=== PATIENT | male | born 1955 | race Caucasian/White ===

== ENCOUNTER 2023-05-30 08:17 | Outpatient (AMB) | payer OTHER, SELFPAY ==
[2023-05-30 08:37] VITALS: BP 140/72; PULSE 92; O2SAT 98; BMI 24.3
--- NOTE | 2023-05-30 08:37 | A.OFFPC_ITS ---
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 Required: No Allergies No Known Allergies Allergy (Verified 05/30/23 08:52) Medication List - Last Reconciled 05/30/23 by PRAVEEN Bernal aspirin 81 mg PO DAILY atorvastatin 80 mg PO BEDTIME Tobacco use date assessed: 05/30/23 Fall risk assessment: No Falls in past year Last assessed Fall Risk: 05/30/23 Dental Screening Dental Screen Date: 05/30/23 Did you have a dental visit in the last 12 months?: No Did you have a dental problem in the last 6 months where you did not have access to dental care?: No HPI HPI Comments History of Present Illness Details 68-year-old male new patient presents to day to establish care. Past medical history significant for stroke 4 weeks ago at [facility], night before had numbness in right leg resolved and then went to work the next day and felt off at work and went ER found out had stroke. Patient states some trouble with memory and residual numbness in right arm and right leg. Ambulatory. Patient's son reports his dad was recommended to be discharged with [facility] however they could not set up with [facility] at the time as he was not established with pcp, will send referral. Patient currently has Holter monitor on since he was discharged from the hospital 1 month ago, patient reports he is unsure how long he is supposed to have Holter monitor on for. Patient advised to call [facility] to follow-up on Holter monitor and when it shoul be removed. Unfortunately records unavailable during this appointment, will request records and have patient follow up for formal hospital discharge follow-up in 4 weeks. Blood pressure elevated in office today 140/72; patient reports he is nervous about being at the doctor's. Discussed following a low-salt diet and will con tinue to monitor his blood pressure. Smokes: 1/2 a pack a day, strongly advised to stop Unknown last PCP. [facility] Medical History (Updated 05/30/23 @ 09:11 by PRAVEEN Bernal) Stroke Family History (Updated 05/30/23 @ 08:55 by PRAVEEN Bernal) Mother No problems noted. Father No problems noted. Social History (Updated 05/30/23 @ 08:59 by PRAVEEN Bernal) Housing: Apartment Alcohol intake: never Patient Tobacco Use Status: Current someday Tobacco user Tobacco use type: Cigarette Cigarette Packs Per Day: 1 service: No Current occupational status: unemployed Cognitive needs: No Hearing needs: No Vision needs: No Questionnaire PHQ-9 Over the last 2 weeks, how often have you been bothered by any of the following problems? 1. Little interest or pleasure in doing things: not at all 2. Feeling down, depressed, or hopeless: not at all 3. Trouble falling or staying asleep, or sleeping too much: not at all 4. Feeling tired or having little energy: not at all 5. Poor appetite or overeating: not at all 6. Feeling bad about yourself - or that you are a failure or have let yourself or your family down: not at all 7. Trouble concentrating on things, such as reading the newspaper or watching television: not at all 8. Moving or speaking so slowly that other people could have noticed. Or the opposite - being so fidgety or restless that you have been moving around a lot more than usual: not at all 9. Thoughts that you would be better off or of hurting yourself in some way: not at all Total score: 0 Depression Screening Interpretation: Negative 95338 - PHQ-9 Billing: Yes Source: Developed by Drs. Jl Barbour, Airam Monson, Tyson Campbell and colleagues, with an educational jose francisco from [employer]. Thrive Questionnaire Date Thrive assessed: 05/30/23 I am a: Patient What is your living situation today?: I have a steady place to live Within the past 12 months, did the food you bought not last and you didn't have the money to get more?: Never true Within the past 12 months, did you worry whether your food would run out before you got money to buy more?: Never true Do you have trouble paying for medicines?: No Do you have trouble getting transportation to medical appointments?: No Do you have trouble paying your heating and electricity bill?: No Do you have trouble taking care of your child, family member or friend?: No Do you have trouble with day-to-day activities such as bathing, preparing meals, shopping, managing finances, etc.?: No Are you currently unemployed and looking for a job?: No Are you interested in more education?: No AUDIT C Alcohol Use Questionnaire (AUDIT-C) 1. How often do you have a drink containing alcohol?: Never 3. How often do you have six or more drinks on one occasion?: Never Total Score: 0 KARAN-7 AMB Questionnaire KARAN-7 Date KARAN - 7 assessed: 05/30/23 Feeling nervous, anxious, or on edge: 0 = Not at all Not being able to stop or control worryin = Not at all Worrying too much about different things: 0 = Not at all Trouble relaxin = Not at all Being so restless that it is hard to sit still: 0 = Not at all Becoming easily annoyed or irritable: 0 = Not at all Feeling afraid as if something awful might happen: 0 = Not at all Total KARAN-7 score (0-4 normal; 5-9 mild; 10-14 moderate; 15-21 severe): 0 Source: Developed by Drs. Jl Barbour, Airam Monson, Tyson Campbell and colleagues, with an educational jose francisco from [employer]. KARAN-7 Assessment Billing KARAN-7 Assessment Tool: KARAN-7 Assessment 49332 Review of Systems Const Denies chills, Denies fatigue, Denies fever(s) and Denies poor appetite Eyes Denies no additional complaints ENT Reports Normal hearing present Card Denies chest pain, Denies syncope, Denies rapid heart rate and Denies dyspnea Resp Denies cough and Denies dyspnea GI Denies change in stool character, Denies constipation, Denies diarrhea, Denies nausea and Denies vomiting Denies dysuria, Denies urinary frequency and Denies urinary urgency Musc Reports numbness (Residual numbness right arm and right leg) Neuro Reports Normal hearing present, Denies confusion, Denies syncope and Reports numbness (Residual numbness right arm and right leg) Psych Denies confusion Endo Denies fatigue Physical exam (Primary Care) Vital Signs: Last Vital Signs Pulse 92 05/30/23 08:37 BP 140/72 H 05/30/23 08:37 Pulse Ox 98 05/30/23 08:37 Oxygen Delivery Method Room Air 05/30/23 08:37 BMI result Body Mass Index 24.3 Tobacco/Smoking Status: Tobacco use Status Tobacco use date assessed 05/30/23 05/30/23 08:45 Patient Tobacco Use Status Current someday Tobacco 05/30/23 08:59 Tobacco use type Cigarette 05/30/23 08:59 PHQ-9: PHQ-9 Score PHQ-9: Total score 0 05/30/23 09:01 Depression Screening Interpretation: Negative Thrive Assessment: Date of Thrive Assessment Date Thrive assessed 05/30/23 05/30/23 08:45 Const General: No confusion Orientation/consciousness: No confusion HENMT Head: Yes normocephalic and Yes atraumatic Eyes Conjunctivae: conjunctivae normal Chest Chest palpation & inspection: normal inspection of the chest Resp Effort & Inspection: normal respiratory effort Auscultation: clear to auscultation bilaterally, no crackles, no rhonchi and no wheezes Cardio Rate: regular rate Rhythm: regular rhythm Heart sounds: S1 normal heart sound present and S2 normal heart sound present GI Inspection: Yes normal to inspection Neuro General: No confusion Cranial nerves: Yes Normal hearing present Extrem General: No edema Assessment and Plan Assessment & Plan (1) Stroke: Comment: Apr 26 2023 Code(s): I63.9 - Cerebral infarction, unspecified Plan: Continue on 81 mg aspirin and atorvastatin 80 mg daily. Patient requesting that atorvastatin be sent in 40 mg tablets as it was cheaper through his insurance. Rx sent. Referral entered to Neurology. (2) Hypercholesteremia: Code(s): E78.00 - Pure hypercholesterolemia, unspecified Plan: Fasting lipid panel ordered. Continue on atorvastatin 40 mg daily. Plan Follow-up in 4 weeks for hospital discharge follow-up. Orders: Orders Complete Blood Count Auto Diff Today Z13.0 - Encounter for screening for diseases of the blood and blood-forming organs and certain disorders involving the immune mechanism Comprehensive [place]. Panel Fast Today I63.9 - Cerebral infarction, unspecified Lipid Panel Today E78.00 - Pure hypercholesterolemia, unspecified TSH reflex Free T4 Today Z13.29 - Encounter for screening for other suspected endocrine disorder Referrals [facility] Referral I63.9 - Cerebral infarction, unspecified Neurology Referral I63.9 - Cerebral infarction, unspecified Medications: New atorvastatin 80 mg (2 x 40 mg) PO BEDTIME 180 tabs 3RF E78.00 - Pure hypercholesterolemia, unspecified Coding Level of Care Code New Pt Level 3 (02228) Diagnoses Stroke I63.9 Hypercholesteremia E78.00 Additional Codes KARAN-7 Assessment Billing - KARAN-7 Assessment Tool: KARAN-7 Assessment 37538 ([id number])
== END 2023-05-30 09:12 | disposition home or self-care (01) ==
PROVIDERS: PCP Nurse Practitioner Family; Visit Provider Nurse Practitioner Family
DX: I69.351 Hemiplegia and hemiparesis following cerebral infarction affecting right dominant side (principal); E78.00 Pure hypercholesterolemia, unspecified
CPT/HCPCS: 99203

== ENCOUNTER 2023-06-28 09:16 | Outpatient (AMB) | payer OTHER, SELFPAY ==
--- NOTE | 2023-06-28 09:26 | A.OFFPC_ITS ---
Vital Signs 06/28/23 09:28 Height 5 ft 8 in Weight 162 lb 8 oz BMI 24.7 BP 138/86 Blood Pressure Location Lt brachial Position Sitting Pulse 80 Pulse Source Pulse Oximeter Pulse Oximetry (%) 97 Oxygen Delivery Method Room Air Intake Visit Reasons: HDF Stroke [facility] Intake Note: Patient is here for hospital discharge follow up. Patient was discharged from [facility] on 04/24/23. 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 Patient presents today for hospital discharge follow-up from [facility], unfortunately records have group been requested x2 and red records unavailable at this time. Patient reminded to get previously ordered blood work completed. Patient continues to have residual numbness down right arm and right foot no other deficits. Patient states he was seen by [facility] prior to discharge x2 and he was discharged from their services[facility] Medical History (Updated 05/30/23 @ 09:11 by PRAVEEN Bernal) Stroke Surgical History (Updated 06/28/23 @ 09:32 by GEORGIANA Mehta) History of tonsillectomy Family History Mother No problems noted. Father No problems noted. Social History Housing: Apartment Alcohol intake: never Patient Tobacco Use Status: Current someday Tobacco user Tobacco use type: Cigarette Cigarette Packs Per Day: 0.5 e-Cigarette/Vaping Use: Never Used Second Hand Smoke Exposure: Yes service: No Current occupational status: unemployed Cognitive needs: No Hearing needs: No Vision needs: No Questionnaire Thrive Questionnaire Date Thrive assessed: 05/30/23 KARAN-7 AMB Questionnaire KARAN-7 Date KARAN - 7 assessed: 05/30/23 Source: Developed by Drs. Jl LAiram Pat, Tyson Campbell and colleagues, with an educational jose francisco from [employer]. Review of Systems Const Denies chills, Denies fatigue, Denies fever(s) and Denies poor appetite Eyes Denies no additional complaints ENT Reports Normal hearing present Card Denies chest pain, Denies syncope, Denies rapid heart rate and Denies dyspnea Resp Denies cough and Denies dyspnea GI Denies change in stool character, Denies constipation, Denies diarrhea, Denies nausea and Denies vomiting Denies dysuria, Denies urinary frequency and Denies urinary urgency Neuro Reports Normal hearing present, Denies confusion and Denies syncope Psych Denies confusion Endo Denies fatigue Physical exam (Primary Care) Vital Signs: Last Vital Signs Pulse 80 06/28/23 09:28 BP 138/86 06/28/23 09:28 Pulse Ox 97 06/28/23 09:28 Oxygen Delivery Method Room Air 06/28/23 09:28 BMI result Body Mass Index 24.7 Tobacco/Smoking Status: Tobacco use Status Tobacco use date assessed 06/28/23 06/28/23 09:33 Patient Tobacco Use Status Current someday Tobacco 06/28/23 09:33 Tobacco use type Cigarette 06/28/23 09:33 e-Cigarette/Vaping Use Never Used 06/28/23 09:33 Thrive Assessment: Date of Thrive Assessment Date Thrive assessed 05/30/23 06/28/23 09:33 Const General: No confusion Orientation/consciousness: No confusion HENMT Head: Yes normocephalic and Yes atraumatic Eyes Conjunctivae: conjunctivae normal Chest Chest palpation & inspection: normal inspection of the chest Resp Effort & Inspection: normal respiratory effort Auscultation: clear to auscultation bilaterally, no crackles, no rhonchi and no wheezes Cardio Rate: regular rate Rhythm: regular rhythm Heart sounds: S1 normal heart sound present and S2 normal heart sound present GI Inspection: Yes normal to inspection Neuro General: No confusion Cranial nerves: Yes Normal hearing present Extrem General: No edema Assessment and Plan Assessment & Plan (1) Hypercholesteremia: Code(s): E78.00 - Pure hypercholesterolemia, unspecified Plan: Continue on atorvastatin 80 mg daily. Avoid fried foods, chicken skin, eggs, butter,margarine, pastries and?? red meat. (2) Stroke: Comment: Apr 26 2023 Code(s): I63.9 - Cerebral infarction, unspecified Plan: Patient has upcoming appointment in September to see Neurology. Continue on 81 mg aspirin. Records re-requested from [facility]. Plan Follow-up in 3 months for physical exam. Coding Level of Care Code Est Pt Level 3 (66766) Diagnoses Hypercholesteremia E78.00 Stroke I63.9
[2023-06-28 09:28] VITALS: BP 138/86; PULSE 80; O2SAT 97; BMI 24.7
== END 2023-06-28 09:58 | disposition home or self-care (01) ==
PROVIDERS: PCP Nurse Practitioner Family; Visit Provider Nurse Practitioner Family
DX: E78.00 Pure hypercholesterolemia, unspecified (principal); I69.951 Hemiplegia and hemiparesis following unspecified cerebrovascular disease affecting right dominant side
CPT/HCPCS: 99213

== ENCOUNTER 2023-09-19 14:42 | Outpatient (AMB) | payer OTHER, SELFPAY ==
--- NOTE | 2023-09-19 15:20 | MHC.OFFVIS ---
Intake Vital Signs 09/19/23 15:21 Height 5 ft 8 in Weight 165 lb BMI 25.1 BP 104/82 Blood Pressure Location Rt brachial Position Sitting Pulse 70 Pulse Source Pulse Oximeter Pulse Oximetry (%) 97 Oxygen Delivery Method Room Air Intake Visit Reasons: I-[employer] [employer] ERECTING: Cerebral infarction- not set up Intake Note: Patient presents for cerebral infarction. Numbness from knee to foot, and my right arm from top to bottom,I have a little twitch in my eye. Allergies No Known Allergies Allergy (Verified 09/19/23 15:25) Medication List - Last Reconciled 09/19/23 by PRAVEEN Cardoza aspirin 81 mg PO DAILY atorvastatin 80 mg (2 x 40 mg) PO BEDTIME HPI HPI Comments History of Present Illness Details Right-handed 68-yr-old male presents for neurological evaluation of: stroke. Accompanied by his son, Clark. Pt reports he was diagnosed w/ stroke at the end of Apr. He states was at work at [employer], started feeling weird, right sided vision problems, and ? numbness. He drove himself to [facility] ER, and son believe he was diagnosed with right basal ganglia stroke, hyperlipidemia. Unfortunately we do not have [facility] reports available today. He was discharged on aspirin and a statin, although he has not been taking the aspirin recently as he ran out and did not realize that he should continue. He did have a Holter monitor after he was discharged, however we realized today that he never turned it.. Patient notes after he was hospitalized for 2 days, upon discharge he was able to play pool that evening as he normally would. He notes that he had more difficulty playing pool, was a bit more clumsy, over time this is improved but maybe not back to his baseline. He reports the following other residual stroke symptoms: Continues to have RUE numbness, right knee-foot- numbness. The numbness- like a pins/needles numbness- not really painful, but aggravating. It can wake him up at night. Right lateral vision disturbance. Due to this he is not driving. Some cognitive difficulties, including name recall difficulties, mild word-finding difficulties, some short-term memory processing difficulties. Prior to the stroke in April 2023, patient had not had routine medical care. He felt he was okay overall. His only known cardiovascular risk factor his chronic tobacco use which he has recently decreased to about 1 pack per day. He reports a remote history of alcohol use, however quit 24-,1/2 years ago. Blood pressure today is normotensive. Currently he denies dysphagia, bowel or bladder incontinence, gait changes, neck pain or back pain, headaches, dizziness, diplopia. He also denies any history of known hypertension, diabetes, chest pain, palpitations, syncope, seizures, shortness of breath on exertion, orthopnea, leg swelling. [facility] Medical History (Updated 09/19/23 @ 21:57 by PRAVEEN Cardoza) Stroke Surgical History (Updated 06/28/23 @ 09:32 by GEORGIANA Mehta) History of tonsillectomy Family History Mother No problems noted. Father No problems noted. Social History Housing: Apartment Alcohol intake: never Patient Tobacco Use Status: Current someday Tobacco user Tobacco use type: Cigarette Cigarette Packs Per Day: 0.5 e-Cigarette/Vaping Use: Never Used Second Hand Smoke Exposure: Yes service: No Current occupational status: unemployed Cognitive needs: No Hearing needs: No Vision needs: No Review of Systems Const All systems reviewed & are unremarkable except as noted in HPI and below Physical Exam Vital Signs: Last Vital Signs Pulse 70 09/19/23 15:21 BP 104/82 09/19/23 15:21 Pulse Ox 97 09/19/23 15:21 Oxygen Delivery Method Room Air 09/19/23 15:21 BMI result Body Mass Index 25.1 Const General: cooperative and no acute distress Orientation/consciousness: patient oriented x3 HEENT Head: Yes normocephalic Resp Effort & Inspection: normal respiratory effort and able to speak in complete sentences Neuro Other: Alert and oriented x3, some very mild short-term memory lapses. Mild lower facial asymmetry Palpebral fissure asymmetry right greater left Very mild postural tremor, patient states has had for years. No appreciable tone or spasticity Bilateral negative Hillary's sign. Right monocular lateral end gaze visual distortion. General: patient oriented x3 Cranial nerves: Yes Facial sensation intact/muscles of mastication intact, Yes Bilaterally intact EOM present, Yes Nystagmus not present, Yes Midline tongue present, Yes Ability to bilaterally rotate head present and Yes Ability to bilaterally elevate shoulders present Gait exam (Neuro): Normal gait present Motor exam (neuro): 5/5 motor strength present throughout Sensory Exam: double simultaneous stimulation for sensation normal Deep tendon reflexes (DTR's): Right triceps reflex intensity grade: 2+, Left triceps reflex intensity grade: 2+, Rt Biceps (C5, C6): 2+, Left biceps reflex intensity grade: 2+, Right brachioradialis reflex intensity grade: 2+, Left brachioradialis reflex intensity grade: 2+, Right patellar reflex intensity grade: 2+ and Left patellar reflex intensity grade: 3+ Coordination: [id number] test normal and tandem gait normal Psych Appearance: grossly normal Mental Status: mental status grossly normal Speech and movement: Normal speech and movement present Affect: normal affect Attitude: cooperative Thought process: Normal thought process present Thought content: Normal thought content present Insight: Good insight present (Psych) Assessment & Plan Assessment & Plan (1) Stroke: Comment: Apr 26 2023 Code(s): I63.9 - Cerebral infarction, unspecified (2) Hypercholesteremia: Code(s): E78.00 - Pure hypercholesterolemia, unspecified (3) Currently smokes tobacco: Code(s): F17.200 - Nicotine dependence, unspecified, uncomplicated (4) Abnormal peripheral vision of right eye: Code(s): H53.451 - Other localized visual field defect, right eye (5) Paresthesia of right upper and lower extremity: Code(s): R20.2 - Paresthesia of skin Plan Patient advised to undergo follow-up brain MRI with and without contrast to assess evolution of known stroke and right-sided paresthesias. We will check baseline labs. Blood pressure normotensive. BMI is optimal. Will request all [facility] ER and hospital notes as well as all workup. Upon review, consider follow-up cardiovascular workup. Will refer patient for ophthalmology evaluation. Son will follow up on Holter monitor to see if any data is likely to be obtained from it at this point, if not we will initiate an order for a new Holter monitor. Resume aspirin 81 mg q.h.s. Continue atorvastatin 80 mg q.h.s. Encourage smoking cessation. Increase physical activity, patient has a stationary bike at home encouraged him to use this daily.. Other future considerations: Cognitive therapy. Follow-up upon review of above and in 3 months or sooner as needed Orders: Orders Comprehensive Met. Panel Today E78.00 - Pure hypercholesterolemia, unspecified, F17.200 - Nicotine dependence, unspecified, uncomplicated, I63.9 - Cerebral infarction, unspecified TSH reflex Free T4 Today E78.00 - Pure hypercholesterolemia, unspecified, F17.200 - Nicotine dependence, unspecified, uncomplicated, I63.9 - Cerebral infarction, unspecified Complete Blood Count Auto Diff Today E78.00 - Pure hypercholesterolemia, unspecified, F17.200 - Nicotine dependence, unspecified, uncomplicated, I63.9 - Cerebral infarction, unspecified CRP High Sensitivity Today E78.00 - Pure hypercholesterolemia, unspecified, F17.200 - Nicotine dependence, unspecified, uncomplicated, I63.9 - Cerebral infarction, unspecified Erythrocyte Sedimentation Rate Today E78.00 - Pure hypercholesterolemia, unspecified, F17.200 - Nicotine dependence, unspecified, uncomplicated, I63.9 - Cerebral infarction, unspecified Vitamin B12 and Folate Today E78.00 - Pure hypercholesterolemia, unspecified, F17.200 - Nicotine dependence, unspecified, uncomplicated, I63.9 - Cerebral infarction, unspecified Lipid Panel with Reflex Today E78.00 - Pure hypercholesterolemia, unspecified, F17.200 - Nicotine dependence, unspecified, uncomplicated, I63.9 - Cerebral infarction, unspecified MR head/brain wo/w con Today E78.00 - Pure hypercholesterolemia, unspecified, F17.200 - Nicotine dependence, unspecified, uncomplicated, H53.451 - Other localized visual field defect, right eye, I63.9 - Cerebral infarction, unspecified, R20.2 - Paresthesia of skin Referrals Ophthalmology Referral E78.00 - Pure hypercholesterolemia, unspecified, H53.451 - Other localized visual field defect, right eye, I63.9 - Cerebral infarction, unspecified Coding Level of Care Code New Pt Level 4 (10566) Diagnoses Stroke I63.9 Hypercholesteremia E78.00 Currently smokes tobacco F17.200 Abnormal peripheral vision of right eye H53.451 Paresthesia of right upper and lower extremity R20.2
[2023-09-19 15:21] VITALS: BP 104/82; PULSE 70; O2SAT 97; BMI 25.1
== END 2023-09-19 16:36 | disposition home or self-care (01) ==
PROVIDERS: PCP Nurse Practitioner Family; Visit Provider Nurse Practitioner Family
DX: I69.351 Hemiplegia and hemiparesis following cerebral infarction affecting right dominant side (principal); I69.312 Visuospatial deficit and spatial neglect following cerebral infarction; E78.00 Pure hypercholesterolemia, unspecified; F17.210 Nicotine dependence, cigarettes, uncomplicated; R20.2 Paresthesia of skin
CPT/HCPCS: 99204

== ENCOUNTER → 2023-09-19 14:42 | Outpatient (BNVA) | payer OTHER, SELFPAY | PROVIDERS: PCP Nurse Practitioner Family; Visit Provider Nurse Practitioner Family ==

== ENCOUNTER 2023-11-21 14:33 | Outpatient (REF) | payer MEDICARE, SELFPAY ==
--- NOTE | ~2023-11-21 | MR_ITS ---
EXAMINATION: MR BRAIN WITHOUT CONTRAST CLINICAL INFORMATION: Cerebral infarction COMPARISON: None available. TECHNIQUE: MRI of the brain was obtained using routine sequences without contrast. FINDINGS: Please note that intravenous contrast was not administered per patient's request. No acute intracranial hemorrhage or infarct. Encephalomalacic changes in the left temporal and occipital lobes. Scattered and confluent periventricular and deep white matter T2/FLAIR hyperintensities, nonspecific however commonly seen with small vessel ischemic disease. Diffuse prominence of the sulci with associated ex vacuo dilation of the ventricles compatible with global cerebral atrophy. No midline shift or hydrocephalus. No acute extra-axial fluid collections. The osseous structures are unremarkable. The pituitary gland, pineal gland and remaining midline structures are unremarkable. Millimeter: Small cysts. No orbital pathology. Mild mucosal thickening of the paranasal sinuses. Trace bilateral mastoid effusions. There is lack of flow void involving the visualized intracranial segment of the left vertebral artery. MR/MR head/brain wo con IMPRESSION: -No acute intracranial abnormality. -Lack of flow void through the visualized left intracranial vertebral artery. This may be secondary to chronic occlusion versus a poorly evaluated hypoplastic vessel. -Chronic microangiopathy and global cerebral atrophy.
[2023-11-21 14:48] LABS: MANUAL DIFF FLAG NO
[2023-11-21 15:21] LABS: Basophils Percent Auto 0.3 % (0-2); Eosinophils Absolute Auto 0.1 X10*3/uL (0.0-0.4); Hematocrit 44.6 % (42.0-52.0); Imm Gran Abs Auto 0.04 X10*3/uL (0.00-0.03); Imm Gran Pct Auto 0.3 % (0.0-0.4); Lymphocytes Absolute Auto 2.4 X10*3/uL (1.2-4.9); Lymphocytes Percent Auto 18.6 % (20-40); Mean Corpuscular HGB Conc 33.6 g/dl (31.0-36.0); Mean Corpuscular Hemoglobin 31.5 pg (27.0-33.0); Mean Corpuscular Volume 93.7 fL (80.0-98.0); Mean Platelet Volume 11.2 fL (9.4-12.4); Monocytes Absolute Auto 0.9 X10*3/uL (0.1-1.2); Neutrophils Absolute Auto 9.3 x10*3/uL (2.0-8.3); Neutrophils Percent Auto 72.8 % (45-73); Platelet Count 223 X10*3/uL (160-400); Red Blood Count 4.76 X10*6/uL (4.60-5.80); White Blood Count 12.8 X10*3/uL (4.8-10.8)
[2023-11-21 16:04] LABS: Alanine Aminotransferase 20 U/L (0-40); Albumin Level 3.9 g/dL (3.5-5.0); Alkaline Phosphatase 106 U/L (39-117); Anion Gap 13 (12-20); Aspartate Amino Transferase 18 U/L (5-37); Bilirubin Total 0.4 mg/dL (0.0-1.0); Blood Urea Nitrogen 23 mg/dL (9-16); Calcium 9.3 mg/dL (8.4-10.2); Carbon Dioxide 26 mmol/L (22-29); Chloride 105 mmol/L (96-108); Cholesterol 114 mg/dL (<200); Estimated Glomerular Filt Rate > 60; Glucose Random 96 mg/dL (60-115); HDL Cholesterol 37 mg/dL (>40); LDL Cholesterol Calculated 63 mg/dL (<100); Potassium 4.1 mmol/L (3.3-5.1); Sodium 140 mmol/L (135-145); Total Protein 6.8 g/dL (6.5-8.0); Triglycerides 72 mg/dL (<150)
[2023-11-21 16:10] LABS: TSH reflex Free T4 0.93 uIU/mL (0.32-4.0)
[2023-11-21 16:22] LABS: Erythrocyte Sedimentation Rate 10 MM/HR (0-15)
[2023-11-21 16:23] LABS: Folate 4.5 ng/mL (> or = 4.0); Vitamin B12 567 pg/mL (200-900)
[2023-11-21 16:30] LABS: Reflex LDLD? No
[2023-11-22 16:08] LABS: CRP High Sensitivity 2.8 mg/L
== END 2023-11-21 14:34 | disposition home or self-care (01) ==
LOC: HO.MRI 14:33
PROVIDERS: Visit Provider Nurse Practitioner Family
DX: I63.9 Cerebral infarction, unspecified (principal); R20.2 Paresthesia of skin; H53.451 Other localized visual field defect, right eye
CPT/HCPCS: 36415; 70551; 80053; 80061; 82607; 82746; 84443; 85025; 85652; 86141